=== PATIENT | female | born 1990 ===

== ENCOUNTER 2021-04-09 07:54 | Inpatient (IN) | payer MEDICARE ==
[~2021-04-09] VITALS: Ht 175.3 cm; Wt 143.6 kg
--- NOTE | ~2021-04-09 | OP ---
PATIENT NAME: CYDNEY ANDERSON MEDICAL RECORD: [id number] :89 LOCATION:[id number] ADMISSION DATE:04/09/21 SURGEON: KATHERINE ALTAMIRANO DO DATE OF OPERATION: 04/09/2021 PREOPERATIVE DIAGNOSES: Category 2 tracing, remote from delivery, 39 weeks, morbid obesity, sterilization. POSTOPERATIVE DIAGNOSES: Category 2 tracing, remote from delivery, 39 weeks, morbid obesity, sterilization. PRIMARY SURGEON: Katherine Altamirano DO ANESTHESIA: Spinal. PROCEDURE: Low transverse via Pfannenstiel incision with bilateral tubal ligation via modified Needmore method. FINDINGS: A viable male born at 1910, loose body cord, clear amniotic fluid, vertex position. Apgars 8 and 9. Chino placed. Grossly normal uterus, bilateral ovaries, and fallopian tubes. SPECIMEN: Placenta, cord pH, cord blood. EBL: 1000 mL. IV FLUIDS: Per Anesthesia. URINE OUTPUT: 200 cc clear yellow urine. INFECTION PROPHYLAXIS: Gentamicin and clindamycin. COMPLICATIONS: None. Due to persistent category 2 tracing, desires of the patient, and being remote from delivery, the patient was counseled on the risks of surgery including bleeding, pain, infection, damage to surrounding structures, reoperation, VTE. The patient expressed understanding and desired to proceed with . DESCRIPTION OF PROCEDURE: The patient was taken to the operating room where spinal anesthesia was placed and found to be adequate. She was prepped and draped in normal sterile fashion in dorsal supine position with a leftward tilt. Pfannenstiel skin incision was made with a scalpel and carried down to the underlying layer of fascia with the Bovie. The fascia was incised in the midline and the incision extended laterally with Mg scissors. The fascia was grasped with Carmine clamps and the rectus muscle dissected off sharply of the inferior and superior portions. Rectus muscle in the midline and peritoneum identified and noted free of any bowel and bladder. Peritoneum entered bluntly and with gentle traction. Bladder blade was placed. Transverse incision was made on the uterus with scalpel. Incision extended with upward and downward traction. Infant's head was brought to the incision, fundal pressure applied. Due to body habitus, difficult to deliver infant with pressure, so Kiwi applied to proper areas of the 's scalp and with gentle traction at the green level of suction, with one gentle pull, the 's head was delivered without difficulty. Kiwi vacuum removed. Mouth and nose were OPERATIVE REPORT [id number] CYDNEY ANDERSON suctioned. Cord was clamped and cut. The infant was handed to awaiting pediatric nurse. Placenta delivered manually. Uterus exteriorized. Dry laparotomy sponge used to assure complete removal of placental membranes. Hysterotomy reapproximated with 0 Vicryl in a running locked fashion in 2 layers. Some bleeding noted at the right lateral side, [id number] placed. Some bleeding noted in the midline and [id number] placed as well. Attention was turned to the posterior cul-de-sac, irrigated and suctioned to remove blood clots and fluid. Attention was then turned to the hysterotomy site and bladder. Prior to this ovaries were low down and urine noted to be clear. Uterus firming up, small area of bleeding noted, cauterized with Bovie with good hemostasis. The patient desired sterilization, so attention turned to the right fallopian tube and utilizing plain gut in a modified Lacho method, a portion of tube removed and cauterized with good hemostasis on both right and left side. Prior to replacement of the uterus into the abdominal cavity, gutters cleaned, a site of tubal ligation examined again and noted to be hemostatic. Chino was placed over hysterotomy due to some small serosal edges on edge of bladder forming for hemostasis. Fundus again noted to be firm. Fascia closed in running fashion a with 0 Vicryl. Subcutaneous tissue irrigated and bleeding vessels cauterized, closed with plain gut and skin closed in a subcuticular fashion with Monocryl. Dermabond applied above and pressure dressing applied. All instrument, lap and needle counts were correct times 2. The patient was then taken to recovery room in stable condition. TRANSINT:[id number] Voice Confirmation ID: [id number] DOCUMENT ID: [id number] KATHERINE ALTAMIRANO DO CC: [id number] DICTATION DATE: 04/10/212233 APPLIED ANTHROPOLOGIST: 04/11/21 0046 ADM IN [facility] [address] [id number]
[2021-04-09 09:19] VITALS: Ht 175.3 cm; Wt 143.6 kg
[2021-04-09 10:11] LABS: HEMATOCRIT 26.6 % (36.0-48.0); HEMOGLOBIN 8.5 g/dL (12-16); MCH 22.3 pg (26.0-34.0); MCHC 31.8 g/dL (31.0-37.0); MCV 70.1 fL (80.0-100.0); RBC 3.8 10x6/uL (4.00-5.40); RDW 18.2 % (11.5-14.5); WBC 15.1 10x3/uL (4.8-10.8)
[2021-04-09 10:17] LABS: UDS - AMPHET NEGATIVE QUAL (NEGATIVE); UDS - BARB NEGATIVE QUAL (NEGATIVE); UDS - BENZO NEGATIVE QUAL (NEGATIVE); UDS - COCAINE NEGATIVE QUAL (NEGATIVE); UDS - OPIATE NEGATIVE QUAL (NEGATIVE); UDS - PCP NEGATIVE QUAL (NEGATIVE); UDS - THC NEGATIVE QUAL (NEGATIVE)
--- NOTE | 2021-04-09 22:35 | NUR ---
SHIFT ASSESSMENT COMPLETED. PT C/O PAIN 4 OUT OF 10 ON NUMERIC PAIN SCALE, WILL CONTACT MD FOR POSTOP PAIN MEDICATION ORDERS, RECOVERY COMPLETED. ROUTINE CARE. C/L IN EASY REACH, CONTINUE TO MONITOR.
--- NOTE | 2021-04-09 23:15 | NUR ---
PHONED DR ZULUAGA FOR POSTOP PAIN MEDICATION ORDERS AFTER MESSAGE LEFT ON VOICEMAIL PER Danyell SPRINGER RN AT 2250 WHILE MD IN SURGERY. TELEPHONE ORDER RECEIVED AND NOTED.
--- NOTE | 2021-04-09 23:39 | NUR ---
UNIVERSITY RELATIONS RECRUITER HERE FOR 4076 TIMED LAB DRAW ORDERED PER DR ZULUAGA.
[2021-04-09 23:56] LABS: HEMATOCRIT 24.5 % (36.0-48.0); HEMOGLOBIN 7.6 g/dL (12-16)
[2021-04-10] VITALS (11 sets, daily range): BP systolic 111–141; BP diastolic 54–79
--- NOTE | 2021-04-10 00:45 | NUR ---
ROUNDS COMPLETED, PT ALERT AND TALKATIVE, RESP EVEN AND UNLABORED, USING INCENTIVE SPIROMETER ON DEMAND, RELAYS PAIN NOW 2/10 ON NUMERIC PAIN SCALE, FF AT U/1 AND MIDLINE, LOCHIA RUBRA LIGHT AMOUNT NO CLOTS, MELCHOR EMPTIED 250ML IN PAST TWO HOURS AND RESET TO GRAVITY DRAINAGE. C/L IN EASY REACH OF PT. WILL MONITOR.
--- NOTE | 2021-04-10 01:41 | NUR ---
ROUNDS COMPLETED, PT AAOX4, RESP EVEN AND UNLABORED, QUESTIONS ANSWERED REGARDING AM BREAKFAST ROUTINES, POSTOP POC, AND CONCERNS OVER SIGNIFICANT OTHER GETTING A TRAY-REVIEWED FACILITY POLICY AT THIS TIME AND PLACED DIETARY NUMBER ON WHITEBOARD FOR PT/SO TO CALL IN AM FOR REQUEST. NO OTHER NEEDS AT THIS TIME, C/L IN EASY REACH. WILL MONITOR.
--- NOTE | 2021-04-10 02:25 | NUR ---
ROUNDS COMPLETED; PERICARE/MELCHOR CARE COMPLETED, FF AT U/2 AND MIDLINE, NAVARRO FREELY, ICE PACK OVERLAY TO LOW TRANSVERSE INCISION REFRESHED AND REPLACED; SCDS ON TO BLE AND FUNCTIONING, IVF CONTINUE TO INFUSE TO RIGHT HAND PIV SITE WITHOUT DIFFICULTY; SITE BENIGN TO INSPECTION, TOLERATING PO L[place]ON [place] WITHOUT DIFFICULTY; GRAPE JUICE PROVIDED PER REQUEST. FAN TO ROOM PER PT REQUEST; PT DENIES OTHER NEEDS AT THIS TIME, C/L IN EASY REACH.
--- NOTE | 2021-04-10 03:43 | NUR ---
ROUNDS COMPLETED, VSS, AFEBRILE, AAOX4, RESP EVEN AND UNLABORED, LUNGS CTAB, RATES PAIN 6 OF 10 ON NUMERIC PAIN SCALE; PRN MED GIVEN REQUESTED, MELCHOR/PERICARE GIVEN, PERIPAD REPLACED, FF AT U/2 AND MIDLINE LOCHIA RUBRA LIGHT AMOUNT NO CLOTS, REPOSITIONED TO COMFORT HOB ELEVATED 30- DEGBREES, SR UP X2, BED IN LOW POSITION. C/L IN EASY REAcH.
--- NOTE | 2021-04-10 04:05 | NUR ---
ROUNDS COMPLETED, RESP EVEN AND UNLABORED, NAD NOTED. RATES PAIN ON REASSESSMENT 2 OUT OF 10 ON NUMERIC PAIN SCALE. C/L IN EASY REACH, WILL MONITOR FOR CHNGE IN CONDITION.
--- NOTE | 2021-04-10 05:43 | NUR ---
ROUNDS COMPLETED, FF AT U/2 AND MIDLINE, LOCHIA RUBRA LIGHT AMOUNT NO CLOTS, PERICARE/MELCHOR CARE COMPLETED, EMPTIED 300ML CLEAR YELLOW URINE FROM MELCHOR AND RESET TO GRAVITY DRAINAGE, REPOSITIONED PT TO COMFORT, HOB ELEVATED 30 DEGREES, SCDS ON B LE AND FUNCTIONING. UNIX ADMINISTRATOR HERE FOR SCHEDULED LAB DRAWS. ICE PACK OVERLAY REFRESHED AND PLACED OVER LOW ABD TRANSVERSE INCISION DRESSING THAT REMAINS CDI AT PRESENT. NAD NOTED. REVIEWED POC FOR TODAY, PT STATES UNDERSTANDING/QUESTIONS ANSWERED. C/L PLACED WITHIN EASY REACH, SO AT BS PROVIDING CARE FOR INFANT. WILL MONITOR.
[2021-04-10 06:49] LABS: BASOPHILS 0.4 % (0-2); EOSINOPHILS 0.8 % (0-7); HEMATOCRIT 23.6 % (36.0-48.0); LYMPHOCYTES 18.7 % (15-50); MCH 22.6 pg (26.0-34.0); MCHC 31.7 g/dL (31.0-37.0); MCV 71.5 fL (80.0-100.0); MEAN PLATELET VOLUME 6.7 fL (7.4-10.4); MONOCYTES 5.3 % (2-11); NEUTROPHILS 74.8 % (40-80); RDW 18.5 % (11.5-14.5); WBC 15.3 10x3/uL (4.8-10.8)
[2021-04-10 07:43] LABS: HEMOGLOBIN 7.5 g/dL (12-16); PLATELET COUNT 325 10x3/uL (130-400)
--- NOTE | 2021-04-10 07:46 | NUR ---
PT SITTING UP IN BED. CONSUMING CLEAR LIQUID DIET. TOLERATING WELL. REQUESTING SOLID FOOD. VSS. HRRR WITHOUT AUDIBLE MURMUR. BBS CLEAR. BS X 4. ABDOMEN SOFT/NON-DISTENDED. FUNDUS FIRM AT U/1. RUBRA LOCHIA SMALL AMT. PERIPADS CHANGED. ABDOMINAL DRESSING DRY WITHOUT DRAINAGE NOTED. NEG HOMANS' SIGN. PPP. MILD NON-PITTING EDEMA NOTED TO BLE. PIV SITE CLEAR. PT C/O INCISIONAL PAIN OF "6" ON 0-10 PAIN SCALE. DECLINES PAIN MED AT THIS TIME. STATES "I WANT TO WAIT AND SEE IF I CAN EAT FIRST SO I WON'T BE SLEEPY". FRESH ICE PACK TO INCISION. PT DENIES NEEDS OR C/O. SR UP X 2. CALL LIGHT IN REACH.
--- NOTE | 2021-04-10 08:06 | NUR ---
DR ZULUAGA NOTIFIED OF LAB RESULTS. GENT ORDER CLARIFIED. ORDERS RECEIVED.
--- NOTE | 2021-04-10 08:15 | NUR ---
PT INFORMED OF ORDERS RECEIVED. PT VERBALIZES UNDERSTANDING. PT INFORMED THAT DR ZULUAGA WILL LET PT DECIDE IF SHE WANTS BLOOD TRANSFUSION OR NOT. PT STATES "I WILL WAIT FOR NOW". PT INSTRUCTED ON AMBULATING SEVERAL TIMES BEFORE SHOWERING AND TO CALL NURSE FOR ASSISTANCE OUT OF BED FOR THE FIRST COUPLE OF TIMES TO BE SURE PATIENT ISN'T SYMPTOMATIC FROM ANEMIA. PT VERBALIZES UNDERSTANDING.
--- NOTE | 2021-04-10 08:50 | NUR ---
PT C/O INCISIONAL PAIN OF "6" ON 0-10 PAIN SCALE. DILAUDID 2 MG GIVEN SIVP OVER 2 MINUTES. PT INSTRUCTED ON MED. VERBALIZES UNDERSTANDING.
--- NOTE | 2021-04-10 09:03 | NUR ---
PIV CONVERTED TO SALINE LOCK. FLUSHES EASILY WITH 10 ML NS. SITE CLEAR. MELCHOR DC'D WITH 325 ML OF CLEAR, YELLOW URINE NOTED IN BAG. PT MARGIE WELL. INSTRUCTED ON TCDB AND INCENTIVE SPIROMETER. PT INSTRUCTED ON NOTIFYING NURSE PRIOR TO GETTING OUT OF BED. PT VERBALIZES UNDERSTANDING.
--- NOTE | 2021-04-10 09:15 | NUR ---
PT AT DESK ASKING WHEN PT MAY SHOWER. THIS NURSE TO ROOM. EXPLAINED, AGAIN ABOUT PT ANEMIA AND AMBULATING A FEW TIMES BEFORE SHOWERING TO MAKE SURE PT ISN'T SYMPTOMATIC (DIZZY, LIGHTHEADED). PT VERBALIZES UNDERSTANDING. REQUESTS TO AMB AT THIS TIME. PT SITS UP ON SIDE OF BED. STATES "I THINK I WANT TO GO AHEAD AND GET THAT BLOOD TRANSFUSION". PT STATES C/O DIZZINESS WITH SITTING UP IN BED. PT DOES NOT AMBULATE AT THIS TIME.
--- NOTE | 2021-04-10 09:25 | NUR ---
DR ZULUAGA NOTIFIED PT STATES DESIRE TO GO AHEAD WITH BLOOD TRANSFUSION. STATES WILL PUT ORDERS IN [facility].
--- NOTE | 2021-04-10 09:31 | NUR ---
HANNAH IN BLOOD BANK NOTIFIED OF ORDER TO TRANSFUSE 2 UNITS PACKED RBC'S ON HOLD.
--- NOTE | 2021-04-10 10:03 | NUR ---
DR ZULUAGA VISITS WITH PT. BENADRYL 50 MG AND TYLENOL 650 MG GIVEN PO ORDERED. PT INSTRUCTED ON MEDS. VERBALIZES UNDERSTANDING.
--- NOTE | 2021-04-10 10:16 | NUR ---
NS UP AT KVO RATE. PIV SITE CLEAR TO RIGHT HAND.
--- NOTE | 2021-04-10 10:30 | NUR ---
FIRST UNIT PACKED RBC'S UP AT 75 ML/HR. PIV SITE CLEAR. PT TOLERATING WELL.
--- NOTE | 2021-04-10 11:00 | NUR ---
BLOOD INFUSION RATE INCREASED TO 125 ML/HR. VSS. PT TOLERATING WELL. PIV SITE CLEAR.
--- NOTE | 2021-04-10 11:15 | NUR ---
PT OOB AND AMB TO BR. VOIDS 300 ML OF BLOOD-TINGED URINE. PERICARE DONE PER PT. PANTIES AND PAD ON. PT AMB BACK TO BED. DENIES DIZZINESS OR LIGHTHEADEDNESS. PT MARGIE WELL.
--- NOTE | 2021-04-10 11:30 | NUR ---
BLODD INFUSION RATE INCREASED TO 250 ML/HR. SITE CLEAR. PT TOLERATING WELL.
--- NOTE | 2021-04-10 12:42 | NUR ---
FIRST UNIT PACKED RBC'S COMPLETED. NS INFUSING TO FLUSH LINE. PT MARGIE WELL.
--- NOTE | 2021-04-10 13:54 | NUR ---
TRANSFUSION RATE INCREASED TO 250 ML/HR. SITE CLEAR.
--- NOTE | 2021-04-10 13:58 | NUR ---
PT C/O INCISIONAL PAIN OF "6" ON 0-10 PAIN SCALE. PERCOCET 10/325 GIVEN PO ORDERED. PT INSTRUCTED ON MED. VERBALIZES UNDERSTANDING.
--- NOTE | 2021-04-10 14:45 | NUR ---
SECOND UNIT OF PACKED RBC'S COMPLETED. NS INFUSING TO FLUSH LINE. PIV SITE CLEAR.
--- NOTE | 2021-04-10 15:41 | NUR ---
PIV CONVERTED TO SALINE LOCK. FLUSHED WITH NS. SITE CLEAR. PT DENIES C/O OR NEEDS.
--- NOTE | 2021-04-10 16:30 | NUR ---
PT OOB AND AMB TO BR. VOIDS 500 ML OF DARK, YELLOW URINE. PERICARE DONE PER PT. PAD CHANGED. PT AMBULATORY IN ROOM. CARING FOR INFANT.
--- NOTE | 2021-04-10 16:56 | NUR ---
PT TRANSFERED VIA AMBULATORY TO ROOM 1257. PT ORIENTED TO ROOM, BED, AND CALL LIGHT. PT MARGIE WELL.
--- NOTE | 2021-04-10 18:33 | NUR ---
PT SITTING UP IN BED. WAKES EASILY UPON ENTERING ROOM. STATES DESIRE TO SHOWER. LINENS AND TOILETRIES PROVIDED TO PT.
--- NOTE | 2021-04-10 19:00 | NUR ---
PT UP WALKING IN THE HALLS. SHE CAME UP TO THE NURSES STATION DURING REPORT. EXPLAINED THAT I WOULD BE SEEING HER SOON FOR HER ASSESSMENT.
--- NOTE | 2021-04-10 19:20 | NUR ---
PT FINISHED WITH SHOWER. DRESSING REMOVED BY PT. ABDOMINAL INCISION WITHOUT REDNESS, SWELLING OR DRAINAGE NOTED. PERIPAD TO INCISION. PT INSTRUCTED ON INCISIONAL CARE. VERBALIZES UNDERSTANDING. PT C/O INCISIONAL PAIN OF "6" ON 0-10 PAIN SCALE. MOTRIN 600 MG AND PERCOCET 10/325 GIVEN PO ORDERED. PT INSTRUCTED ON MEDS. VERBALIZES UNDERSTANDING.
--- NOTE | 2021-04-10 20:00 | NUR ---
ASSESSMENT COMPLETED. ALONG WITH HER C SECTION SHE TELLS ME SHE HAD A TUBAL. SHE IS UP VOIDING WELL. SHE RECEIVED 2 UNITS OF BLOOD TODAY. SHE HAS A SALINE LOCK IN HER RIGHT HAND. SHE HAS SHOWERED. SHE STATES HER BLEEDING IS SMALL NOW. SHE WAS GIVEN A PERCOCET AND MOTRIN BY THE DAY NURSE BEFORE SHE LEFT. PT HAS NO C/O AT THIS TIME.
--- NOTE | 2021-04-10 21:00 | NUR ---
PT IS HERE. HE IS VERY HELPFUL TO THE PT.
[2021-04-10 22:33] LABS: HEMATOCRIT 28.6 % (36.0-48.0); HEMOGLOBIN 9.3 g/dL (12-16)
[2021-04-11] VITALS: BP 138/88
--- NOTE | 2021-04-11 01:13 | NUR ---
PT REQUESTED PAIN MEDS. PERCOCET 10 WAS GIVEN PO PER ORDER. PT WAS ALSO GIVEN GAS X AND COLACE THAT WERE MISSED ON LAST MED PASS.
--- NOTE | 2021-04-11 03:00 | NUR ---
PT IS RESTING QUIETLY AT THIS TIME NO C/0 OR NEEDS
--- NOTE | 2021-04-11 04:00 | NUR ---
RESTING QUIETLY. HAS BEEN UP TO THE BR. NO C/O
[2021-04-11 06:02] LABS: BASOPHILS 0.2 % (0-2); HEMATOCRIT 29.9 % (36.0-48.0); HEMOGLOBIN 9.4 g/dL (12-16); LYMPHOCYTES 18.5 % (15-50); MCH 23.8 pg (26.0-34.0); MCHC 31.5 g/dL (31.0-37.0); MEAN PLATELET VOLUME 6.6 fL (7.4-10.4); MONOCYTES 6.7 % (2-11); NEUTROPHILS 73.6 % (40-80); PLATELET COUNT 335 10x3/uL (130-400); RBC 3.96 10x6/uL (4.00-5.40); RDW 21.3 % (11.5-14.5); WBC 15.4 10x3/uL (4.8-10.8)
[2021-04-11 06:33] LABS: MCV 75.5 fL (80.0-100.0)
--- NOTE | 2021-04-11 06:40 | NUR ---
AWAKE IN BED WATCHING TV. PT HAS NO C/O AT THIS TIME.
--- NOTE | 2021-04-11 09:30 | NUR ---
PT SITTING UP ON SIDE OF BED FEEDING INFANT. RATES PAIN AT 6/10, SEE EMAR FOR MEDS GIVEN. WILL RETURN TO COMPLETE ASSESSMENT.
--- NOTE | 2021-04-11 09:45 | NUR ---
AM ASSESSMENT CHARTED TO FLOWSHEET. BIKINI INCISION CLEAN AND DRY, FUNDUS FIRM AT U/1 WITH LIGHT BLEEDING NOTED. SALINE LOCK TO RIGHT HAND PATENT AND FLUSHED EASILY WITH 5ML NS. PT DOES C/O TENDERNESS AT SITE BUT WILL WAIT FOR LAB RESULTS BEFORE HAVING IT REMOVED. LARGE CUP OF ICE REQUESTED. SIG OTHER AT BEDSIDE.
[2021-04-11 10:20] VITALS: BP 125/75
--- NOTE | 2021-04-11 11:18 | NUR ---
SALINE LOCK REMOVED WITH CATH INTACT. SHE RATES PAIN AT 2/10 AND DENIES ANY NEEDS AT THIS TIME.
--- NOTE | 2021-04-11 13:30 | NUR ---
DENIES PAIN OR DISCOMFORT AND HAS NO NEEDS AT THIS TIME.
--- NOTE | 2021-04-11 16:00 | NUR ---
pain med given as scanned to emar. rates pain at6/10. she also reports that she had bm earlier today.
--- NOTE | 2021-04-11 16:23 | NUR ---
VERBAL AND WRITTEN DISCHARGE INSTRUCTIONS GONE OVER, WRITTEN SCRIPTS PROVIDED FOR PERCOCET 5/325MG AND MOTRIN 800MG. DENIES QUESTIONS OR CONCERNS. SHE ALSO UNDERSTANDS THAT CANNOT BE DISCHARGED UNTIL 1909 YI. ADVISED TO CALL FOR NURSE IF SHE HAS ANY QUESTIONS PRIOR TO LEAVING.
--- NOTE | 2021-04-11 19:15 | NUR ---
PT DISCHARGED HOME AT THIS TIME W/BABY. TRANSPORTED OFF UNIT VIA W/C TO AWAITING CAR TO BE DRIVEN HOME BY SIG OTHER.
== END 2021-04-11 19:15 | disposition home or self-care (01) | DRG 785 ==
LOC: D.LD 07:54
PROVIDERS: ADMIT Obstetrics & Gynecology; ATTEND Obstetrics & Gynecology
PROC: 3E0DXGC Introduction of Other Therapeutic Substance into Mouth and Pharynx, External Approach (ICD-10-PCS; principal; 2021-04-09)
PROC: 0UB70ZZ Excision of Bilateral Fallopian Tubes, Open Approach (ICD-10-PCS; 2021-04-09)
PROC: 10D00Z1 Extraction of Products of Conception, Low, Open Approach (ICD-10-PCS; 2021-04-09)
PROC: 10907ZC Drainage of Amniotic Fluid, Therapeutic from Products of Conception, Via Natural or Artificial Opening (ICD-10-PCS; 2021-04-09)
PROC: 3E033VJ Introduction of Other Hormone into Peripheral Vein, Percutaneous Approach (ICD-10-PCS; 2021-04-09)
DX: O99.214 Obesity complicating childbirth (principal); Z37.0 Single live birth; E66.01 Morbid (severe) obesity due to excess calories; Z3A.39 39 weeks gestation of pregnancy; Z30.2 Encounter for sterilization; O99.824 Streptococcus B carrier state complicating childbirth; O99.334 Smoking (tobacco) complicating childbirth; O76 Abnormality in fetal heart rate and rhythm complicating labor and delivery